=== PATIENT | female | born 1945 | race Caucasian/White ===

== ENCOUNTER → 2019-07-20 | Outpatient (CLI) | payer BC | END | disposition home or self-care (01) | LOC: CVU 07:37 | PROVIDERS: ATTEND Internal Medicine Cardiovascular Disease | DX: I10 Essential (primary) hypertension (principal); R09.89 Other specified symptoms and signs involving the circulatory and respiratory systems | CPT/HCPCS: 93880 ==

== ENCOUNTER 2020-03-08 07:44 | Day surgery (SDC) | payer BC ==
[2020-03-05 11:11] LABS: BASOPHILS # (AUTO) 0.04 x10^3/uL (0-0.1); BASOPHILS % (AUTO) 1 % (0-1); EOSINOPHILS # (AUTO) 0.12 x10^3/uL (0-0.4); EOSINOPHILS % (AUTO) 2 % (1-7); LYMPHOCYTES % (AUTO) 37 % (22-44); MD NO; MEAN CORPUSCULAR HEMOGLOBIN 29.7 pg (27.0-34.8); MEAN CORPUSCULAR HGB CONC 33.3 g/dL (32.4-35.8); MEAN CORPUSCULAR VOLUME 89.2 fL (80-100); MEAN PLATELET VOLUME 7.7 fL (7.4-10.4); MONOCYTES # (AUTO) 0.52 x10^3/uL (0.2-0.8); MONOCYTES % (AUTO) 9 % (2-9); NEUTROPHILS # (AUTO) 2.87 x10^3/uL (1.8-6.8); NEUTROPHILS % (AUTO) 51 % (42-75); PLATELET COUNT 286 x10^3/uL (130-400); RED BLOOD COUNT 4.57 x10^6/uL (3.82-5.3); RED CELL DISTRIBUTION WIDTH 12.9 % (9.6-15.2)
[2020-03-05 11:18] LABS: INTERNATIONAL NORMALIZED RATIO 0.97 (0.93-1.1)
[2020-03-05 11:22] LABS: ANION GAP 5 mmol/L (5-15); CALCIUM 9.1 mg/dL (8.5-10.1); CHLORIDE 106 mmol/L (98-107)
[2020-03-05 11:27] LABS: ALANINE AMINOTRANSFERASE 35 U/L (12-78); ALKALINE PHOSPHATASE 95 U/L (45-117); BILIRUBIN,TOTAL 0.5 mg/dL (0.2-1.0); CREATININE 0.99 mg/dL (0.55-1.02); TOTAL PROTEIN 7.5 g/dL (6.4-8.2)
[~2020-03-08] VITALS: Ht 165.1 cm; Wt 72.9 kg
[~2020-03-08 07:44] MED LIST: ASPI81TA45 PO; DIGE1TAB PO; ESOM20CA PO; LEVO75TA PO; METO-93 PO; ROSU10TA2 PO; VALS1TAB22 PO
[2020-03-08] MEDS ORDERED: CHLORHEXIDINE 15 ML UDC MM STA (08:19)
[2020-03-08] MEDS ORDERED: LACTATED RINGERS 1,000 ML IV ONE (08:19)
[2020-03-08] MEDS ORDERED: FENTANYL PF 250 MCG/5ML ONE (09:26)
[2020-03-08] MEDS ORDERED: ONDANSETRON 2MG/ML, 2ML ONE (09:30)
[2020-03-08] MEDS ORDERED: CEFAZOLIN 1,000 MG ONE (09:30)
[2020-03-08] MEDS ORDERED: PROPOFOL 10 MG/ML, 20ML ONE (09:30)
[2020-03-08] MEDS ORDERED: GLYCOPYRROLATE 0.2MG/1ML, 5ML ONE (09:30)
[2020-03-08] MEDS ORDERED: DEXAMETHASONE 4 MG/ML, 1ML ONE (09:30)
[2020-03-08] MEDS ORDERED: NEOSTIGMINE 1 MG/ML, 10ML ONE (09:30)
[2020-03-08] MEDS ORDERED: ROCURONIUM 10MG/ML,5ML ONE (09:30)
[2020-03-08] MEDS ORDERED: ISOSULFAN BLUE 10 MG/ML, 5ML IV ONE (09:56)
[2020-03-08] MEDS ORDERED: BUPIVACAINE/PF 0.5% ONE (09:56)
[2020-03-08] MEDS ORDERED: EPINEPHRINE 1 MG/ML, 1ML ONE (09:56)
[2020-03-08] MEDS ORDERED: ACETAMINOPHEN 325 MG TABLET PO PRN (11:00)
[2020-03-08] MEDS ORDERED: OXYcodone 5 MG/5 ML ORAL.SOL UDC PO PRN (11:00)
[2020-03-08] MEDS ORDERED: hydrALAzine 20 MG/ML, 1ML IV PRN (11:00)
[2020-03-08] MEDS ORDERED: HYDROmorphone 1 MG/ML, 1ML INJ IVPush PRN (11:00)
[2020-03-08] MEDS ORDERED: HALOPERIDOL 5 MG/ML IV PRN (11:00)
[2020-03-08] MEDS ORDERED: MEPERIDINE/PF 25MG/0.5ML IVPush PRN (11:00)
[2020-03-08] MEDS ORDERED: LABETALOL 5MG/ML, 20ML IV PRN (11:00)
[2020-03-08] MEDS ORDERED: morphine SULFATE 10 MG/ML, 1ML IVPush PRN (11:00)
[2020-03-08] MEDS ORDERED: FENTANYL PF 100 MCG/2ML IV PRN (11:00)
[2020-03-08] MEDS ORDERED: PROMETHAZINE 25 MG/ML, 1ML IVPush PRN (11:00)
[2020-03-08] MEDS ORDERED: BUPIVACAINE/PF-EPI 0.5% 1:200K INFIL ONE (11:26)
[2020-03-08] MEDS ORDERED: PROMETHAZINE 25 MG/ML, 1ML ONE (13:20)
[2020-03-08] MEDS ORDERED: HYDROmorphone 1 MG/ML, 1ML INJ ONE (13:20)
== END 2020-03-08 17:40 | disposition home or self-care (01) ==
LOC: OUT 07:44
PROVIDERS: ATTEND Surgery
DX: C50.512 Malignant neoplasm of lower-outer quadrant of left female breast (principal); Z17.0 Estrogen receptor positive status [ER+]; C96.9 Malignant neoplasm of lymphoid, hematopoietic and related tissue, unspecified; Z20.828 Contact with and (suspected) exposure to other viral communicable diseases; E11.9 Type 2 diabetes mellitus without complications; I10 Essential (primary) hypertension; K21.9 Gastro-esophageal reflux disease without esophagitis; E78.5 Hyperlipidemia, unspecified; E03.9 Hypothyroidism, unspecified; Z72.0 Tobacco use; Z90.49 Acquired absence of other specified parts of digestive tract; Z98.890 Other specified postprocedural states; Z90.710 Acquired absence of both cervix and uterus; Z79.899 Other long term (current) drug therapy; Z79.82 Long term (current) use of aspirin; Z72.89 Other problems related to lifestyle; Z82.49 Family history of ischemic heart disease and other diseases of the circulatory system; Z83.3 Family history of diabetes mellitus
CPT/HCPCS: 19301; 36415; 38525; 80053; 85025; 85610; 87635; 88305; 88307; 93005; C1729; J0171; J0690; J1100; J1170; J2405; J2550; J2704; J2710; J3010; J7120

== ENCOUNTER 2020-03-27 08:00 | Outpatient (CLI) | payer SELFPAY ==
[~2020-03-27] VITALS: Ht 165.1 cm; Wt 72.7 kg
[2020-03-27] MEDS ORDERED: ROSU5TAB PO (10:59)
[2020-03-27 12:19] LABS: ALANINE AMINOTRANSFERASE 24 U/L (12-78); ALBUMIN 3.6 g/dL (3.4-5.0); CALCIUM 8.8 mg/dL (8.5-10.1); CREATININE 0.94 mg/dL (0.55-1.02)
[2020-03-27 12:22] LABS: ALKALINE PHOSPHATASE 99 U/L (45-117); BILIRUBIN,TOTAL 0.8 mg/dL (0.2-1.0); TOTAL PROTEIN 6.9 g/dL (6.4-8.2)
[2020-03-27 12:41] LABS: ANION GAP 7 mmol/L (5-15); CHLORIDE 105 mmol/L (98-107)
== END 2020-03-27 23:59 | disposition home or self-care (01) ==
LOC: STAR 08:00 → EDSTATUS 03-30 08:30
PROVIDERS: ATTEND Surgery
DX: Z01.818 Encounter for other preprocedural examination (principal); C50.519 Malignant neoplasm of lower-outer quadrant of unspecified female breast; Z79.82 Long term (current) use of aspirin; Z79.899 Other long term (current) drug therapy; Z20.828 Contact with and (suspected) exposure to other viral communicable diseases; Z72.89 Other problems related to lifestyle; Z87.891 Personal history of nicotine dependence; Z82.49 Family history of ischemic heart disease and other diseases of the circulatory system; Z83.3 Family history of diabetes mellitus
CPT/HCPCS: 36415; 80053; 87635; 93005

== ENCOUNTER 2020-08-03 10:00 | Outpatient (CLI) | payer MEDICARE ==
[~2020-08-03 10:00] MED LIST changes: +ROSU5TAB PO
== END 2020-08-03 23:59 | disposition home or self-care (01) ==
LOC: ROC 10:00
PROVIDERS: ATTEND Radiology Radiation Oncology
DX: C50.512 Malignant neoplasm of lower-outer quadrant of left female breast (principal)
CPT/HCPCS: G0463

== ENCOUNTER → 2020-10-03 | Outpatient (CLI) | payer MEDICARE | END | disposition home or self-care (01) | LOC: ROC 07:41 | PROVIDERS: ATTEND Radiology Radiation Oncology | DX: Z08 Encounter for follow-up examination after completed treatment for malignant neoplasm (principal); Z85.3 Personal history of malignant neoplasm of breast; Z17.0 Estrogen receptor positive status [ER+]; Z79.899 Other long term (current) drug therapy | CPT/HCPCS: G0463 ==

== ENCOUNTER → 2021-01-09 | Outpatient (CLI) | payer MEDICARE | END | disposition home or self-care (01) | LOC: ROC 10:10 | PROVIDERS: ATTEND Radiology Radiation Oncology | DX: C50.512 Malignant neoplasm of lower-outer quadrant of left female breast (principal); M43.16 Spondylolisthesis, lumbar region; Z17.0 Estrogen receptor positive status [ER+] | CPT/HCPCS: G0463 ==

== ENCOUNTER → 2021-02-08 | Outpatient (CLI) | payer MEDICARE ==
[~2021-02-08] MED LIST changes: +ANAS1TAB49 PO
[2021-02-08 12:41] LABS: BASOPHILS % (AUTO) 1 % (0-1); EOSINOPHILS % (AUTO) 2 % (1-7); LYMPHOCYTES % (AUTO) 33 % (22-44); MEAN CORPUSCULAR HEMOGLOBIN 30.3 pg (27.0-34.8); MEAN CORPUSCULAR HGB CONC 34.7 g/dL (32.4-35.8); MEAN PLATELET VOLUME 6.9 fL (7.4-10.4); MONOCYTES % (AUTO) 13 % (2-9); NEUTROPHILS % (AUTO) 51 % (42-75); PLATELET COUNT 251 x10^3/uL (130-400); RED BLOOD COUNT 4.59 x10^6/uL (3.82-5.3); RED CELL DISTRIBUTION WIDTH 13.1 % (9.6-15.2)
[2021-02-08 12:42] LABS: MICROSCOPIC AUTO
[2021-02-08 12:50] LABS: INTERNATIONAL NORMALIZED RATIO 0.99 (0.93-1.1); PROTHROMBIN TIME 10.6 Seconds (9.6-11.5)
[2021-02-08 12:51] LABS: ALANINE AMINOTRANSFERASE 30 U/L (12-78); ANION GAP 8 mmol/L (5-15); CALCIUM 9.3 mg/dL (8.5-10.1); CHLORIDE 103 mmol/L (98-107); CREATININE 0.97 mg/dL (0.55-1.02)
[2021-02-08 12:54] LABS: ALKALINE PHOSPHATASE 117 U/L (45-117); BILIRUBIN,TOTAL 0.5 mg/dL (0.2-1.0); TOTAL PROTEIN 7.6 g/dL (6.4-8.2)
== END | disposition home or self-care (01) ==
LOC: STAR 11:22
PROVIDERS: ATTEND Neurological Surgery
DX: Z01.818 Encounter for other preprocedural examination (principal); M43.16 Spondylolisthesis, lumbar region
CPT/HCPCS: 36415; 71046; 80053; 81001; 85025; 85610; 85730; 87086; 93005

== ENCOUNTER → 2021-02-08 | Outpatient (CLI) | payer MEDICARE | END | disposition home or self-care (01) | LOC: CFH 14:12 | PROVIDERS: ATTEND Neurological Surgery | DX: M47.817 Spondylosis without myelopathy or radiculopathy, lumbosacral region (principal); M51.36 Other intervertebral disc degeneration, lumbar region; M43.16 Spondylolisthesis, lumbar region; M48.061 Spinal stenosis, lumbar region without neurogenic claudication | CPT/HCPCS: 72131 ==

== ENCOUNTER 2021-02-20 06:32 | Inpatient (IN) | payer MEDICARE ==
[~2021-02-20] VITALS: Ht 162.6 cm; Wt 76.5 kg
[2021-02-20] MEDS ORDERED: CHLORHEXIDINE 15 ML UDC ONE (07:15)
[2021-02-20] MEDS ORDERED: CHLORHEXIDINE 15 ML UDC PO ONE (07:30)
[2021-02-20] MEDS ORDERED: LACTATED RINGERS 1,000 ML IV SCH (07:30)
[2021-02-20] MEDS ORDERED: FENTANYL PF 250 MCG/5ML ONE (08:09)
[2021-02-20] MEDS ORDERED: PROPOFOL 100 ML ONE ×2 (08:10→11:54)
[2021-02-20] MEDS ORDERED: VANCOMYCIN 1,000 MG ONE (09:06)
[2021-02-20] MEDS ORDERED: BUPIVACAINE/PF 0.5% ONE (09:06)
[2021-02-20] MEDS ORDERED: BUPIVACAINE/PF 0.25% ONE (09:06)
[2021-02-20] MEDS ORDERED: GENTAMICIN 80 MG/2 ML ONE (09:06)
[2021-02-20] MEDS ORDERED: EPHEDRINE 50 MG/ML, 1ML ONE (09:46)
[2021-02-20] MEDS ORDERED: NEOSTIGMINE 1 MG/ML, 10ML ONE (10:14)
[2021-02-20] MEDS ORDERED: PROPOFOL 10 MG/ML, 20ML ONE (10:14)
[2021-02-20] MEDS ORDERED: ROCURONIUM 10MG/ML,5ML ONE (10:14)
[2021-02-20] MEDS ORDERED: DEXAMETHASONE 4 MG/ML, 1ML ONE (10:14)
[2021-02-20] MEDS ORDERED: SUCCINYLCHOLINE 20 MG/ML, 10ML ONE (10:14)
[2021-02-20] MEDS ORDERED: ONDANSETRON 2MG/ML, 2ML ONE (10:14)
[2021-02-20] MEDS ORDERED: GLYCOPYRROLATE 0.2MG/1ML, 5ML ONE (10:14)
[2021-02-20] MEDS ORDERED: CEFAZOLIN 1,000 MG ONE (10:14)
[2021-02-20] MEDS ORDERED: hydrALAzine 20 MG/ML, 1ML IV PRN (11:00)
[2021-02-20] MEDS ORDERED: HYDROmorphone 1 MG/ML, 1ML INJ IVPush PRN (11:00)
[2021-02-20] MEDS ORDERED: LABETALOL 5MG/ML, 20ML IV PRN (11:00)
[2021-02-20] MEDS ORDERED: LORazepam 2 MG/ML, 1ML IVPush PRN (11:00)
[2021-02-20] MEDS ORDERED: ACETAMINOPHEN 325 MG TABLET PO PRN (11:00)
[2021-02-20] MEDS ORDERED: PROMETHAZINE 25 MG SUPP PR PRN (11:00)
[2021-02-20] MEDS ORDERED: METHOCARBAMOL 1,000 MG in DEXTROSE 5% 100 ML IV PRN (11:00)
[2021-02-20] MEDS ORDERED: ONDANSETRON 2MG/ML, 2ML IVPush PRN (11:00)
[2021-02-20] MEDS ORDERED: METOPROLOL 1 MG/ML, 5ML IV PRN (11:00)
[2021-02-20] MEDS ORDERED: OXYcodone 5 MG/5 ML ORAL.SOL UDC PO PRN (11:00)
[2021-02-20] MEDS ORDERED: PROMETHAZINE 25 MG/ML, 1ML IVPush PRN (11:00)
[2021-02-20] MEDS ORDERED: BUPIVACAINE 0.25% ONE (11:14)
[2021-02-20] MEDS ORDERED: EPINEPHRINE 1 MG/ML, 1ML ONE (11:14)
[2021-02-20] MEDS ORDERED: FENTANYL PF 100 MCG/2ML ONE ×2 (13:36→14:21)
[2021-02-20] MEDS: FENTANYL PF 100 MCG/2ML IV PRN ×3 (13:38→14:23)
[2021-02-20] MEDS ORDERED: OXYcodone 5 MG/5 ML ORAL.SOL UDC ONE (13:55)
[2021-02-20] MEDS ORDERED: ACETAMINOPHEN 650 MG/20.3 ML UDC ONE (13:55)
[2021-02-20] MEDS ORDERED: HYDROmorphone PCA 30 MG/30 ML IV PRN ×2 (14:30→17:00)
[2021-02-20] MEDS ORDERED: OXYcodone IR 5MG TABLET PO PRN (17:00)
[2021-02-20] MEDS ORDERED: morphine SULFATE 10 MG/ML, 1ML IV PRN (17:00)
[2021-02-20] MEDS ORDERED: PROMETHAZINE 25 MG/ML, 1ML IM PRN (17:00)
[2021-02-20] MEDS ORDERED: BISACODYL 10 MG SUPP PR PRN (17:00)
[2021-02-20] MEDS ORDERED: ONDANSETRON 2MG/ML, 2ML IV PRN (17:00)
[2021-02-20] MEDS ORDERED: MAGNESIUM HYDROXIDE 8%, 30ML UDC PO PRN (17:00)
[2021-02-20] MEDS ORDERED: DIPHENHYDRAMINE 50 MG/ML, 1ML IVPush PRN (17:30)
[2021-02-20] MEDS ORDERED: DIPHENHYDRAMINE 50 MG/ML, 1ML IM PRN (17:30)
[2021-02-20] MEDS: CEFAZOLIN PMX 1GM/50ML 50 ML IVPB SCH (19:37)
[2021-02-20] MEDS: ATORVASTATIN 40 MG TABLET PO SCH (19:57)
[2021-02-20 20:00] VITALS: BP 111/61
[2021-02-20] MEDS: NS + 20MEQ KCL 1,000 ML IV SCH (21:31)
[2021-02-20 23:34] VITALS: BP 105/67
[2021-02-21 02:53] VITALS: BP 96/61
[2021-02-21] MEDS: CEFAZOLIN PMX 1GM/50ML 50 ML IVPB SCH (03:40)
[2021-02-21] MEDS ORDERED: METOPROLOL SUCCINATE 50 MG TAB.ER.24H PO SCH (06:00)
[2021-02-21] MEDS: NS + 20MEQ KCL 1,000 ML IV SCH ×2 (06:08→17:25)
[2021-02-21] MEDS: PANTOPRAZOLE 40MG TABLET PO SCH (06:09)
[2021-02-21] MEDS: LEVOTHYROXINE 75 MCG TABLET PO SCH (06:09)
[2021-02-21 06:30] LABS: BASOPHILS % (AUTO) 0 % (0-1); EOSINOPHILS % (AUTO) 0 % (1-7); LYMPHOCYTES % (AUTO) 9 % (22-44); MEAN CORPUSCULAR HEMOGLOBIN 30.1 pg (27.0-34.8); MEAN CORPUSCULAR HGB CONC 34.5 g/dL (32.4-35.8); MEAN PLATELET VOLUME 8.4 fL (7.4-10.4); MONOCYTES % (AUTO) 12 % (2-9); NEUTROPHILS % (AUTO) 79 % (42-75); PLATELET COUNT 146 x10^3/uL (130-400); RED BLOOD COUNT 3.56 x10^6/uL (3.82-5.3); RED CELL DISTRIBUTION WIDTH 12.8 % (9.6-15.2)
[2021-02-21 06:41] LABS: ANION GAP 5 mmol/L (5-15); CHLORIDE 108 mmol/L (98-107); CREATININE 0.79 mg/dL (0.55-1.02)
[2021-02-21 07:58] VITALS: BP 119/70
[2021-02-21] MEDS: VALSARTAN 80 MG TABLET PO SCH (08:01)
[2021-02-21] MEDS: SENNA/DOCUSATE TABLET PO SCH (08:01)
[2021-02-21] MEDS: HYDROCHLOROTHIAZIDE 12.5 MG CAPSULE PO SCH (08:01)
[2021-02-21] MEDS ORDERED: HYDROmorphone 2MG TABLET PO PRN (08:30)
[2021-02-21] MEDS ORDERED: ANASTROZOLE 1 MG TABLET PO SCH (09:00)
[2021-02-21 12:44] VITALS: BP 107/64
[2021-02-21 19:59] VITALS: BP 117/70
[2021-02-21] MEDS: ATORVASTATIN 40 MG TABLET PO SCH (21:00)
[2021-02-21] MEDS: METOPROLOL SUCCINATE 50 MG TAB.ER.24H PO SCH (21:11)
[2021-02-21] MEDS: TIZANIDINE 2MG TABLET PO PRN (21:23)
[2021-02-22] MEDS: NS + 20MEQ KCL 1,000 ML IV SCH ×3 (00:49→20:10)
[2021-02-22 01:33] VITALS: BP 108/64
[2021-02-22 05:51] LABS: BASOPHILS % (AUTO) 0 % (0-1); EOSINOPHILS % (AUTO) 0 % (1-7); LYMPHOCYTES % (AUTO) 12 % (22-44); MEAN CORPUSCULAR HEMOGLOBIN 30.9 pg (27.0-34.8); MEAN CORPUSCULAR HGB CONC 34.9 g/dL (32.4-35.8); MEAN PLATELET VOLUME 7.3 fL (7.4-10.4); MONOCYTES % (AUTO) 11 % (2-9); NEUTROPHILS % (AUTO) 77 % (42-75); PLATELET COUNT 173 x10^3/uL (130-400); RED BLOOD COUNT 3.19 x10^6/uL (3.82-5.3)
[2021-02-22 06:01] LABS: ANION GAP 5 mmol/L (5-15); CALCIUM 8.4 mg/dL (8.5-10.1); CHLORIDE 107 mmol/L (98-107)
[2021-02-22] MEDS: LEVOTHYROXINE 75 MCG TABLET PO SCH (06:01)
[2021-02-22] MEDS: PANTOPRAZOLE 40MG TABLET PO SCH (06:01)
[2021-02-22 06:03] LABS: CREATININE 0.71 mg/dL (0.55-1.02)
[2021-02-22] MEDS: OXYcodone IR 5MG TABLET PO PRN ×4 (07:42→23:02)
[2021-02-22] MEDS: HYDROCHLOROTHIAZIDE 12.5 MG CAPSULE PO SCH (07:43)
[2021-02-22] MEDS: VALSARTAN 80 MG TABLET PO SCH (07:43)
[2021-02-22] MEDS: SENNA/DOCUSATE TABLET PO SCH (07:44)
[2021-02-22 08:40] VITALS: BP 115/64
[2021-02-22] MEDS: TIZANIDINE 2MG TABLET PO PRN (09:53)
[2021-02-22] MEDS: DEXAMETHASONE 4 MG TABLET PO SCH ×2 (14:44→18:27)
[2021-02-22 16:05] VITALS: BP 100/63
[2021-02-22] MEDS: ATORVASTATIN 40 MG TABLET PO SCH (20:08)
[2021-02-22] MEDS: METOPROLOL SUCCINATE 50 MG TAB.ER.24H PO SCH (20:12)
[2021-02-22 20:35] VITALS: BP 113/69
[2021-02-23 02:03] VITALS: BP 113/67
[2021-02-23] MEDS: OXYcodone IR 5MG TABLET PO PRN ×2 (04:28→09:17)
[2021-02-23] MEDS: PANTOPRAZOLE 40MG TABLET PO SCH (05:32)
[2021-02-23] MEDS: LEVOTHYROXINE 75 MCG TABLET PO SCH (05:32)
[2021-02-23] MEDS: NS + 20MEQ KCL 1,000 ML IV SCH (07:30)
[2021-02-23] MEDS ORDERED: METH4TAB2 PO (09:02)
[2021-02-23] MEDS ORDERED: TIZA-106 PO (09:02)
[2021-02-23] MEDS ORDERED: OXYC-302 PO (09:02)
[2021-02-23] MEDS ORDERED: SENN-211 PO (09:02)
[2021-02-23] MEDS ORDERED: MAGN400O7 PO (09:02)
[2021-02-23] MEDS: SENNA/DOCUSATE TABLET PO SCH (09:17)
[2021-02-23] MEDS: DEXAMETHASONE 4 MG TABLET PO SCH ×2 (09:17→12:34)
[2021-02-23] MEDS: HYDROCHLOROTHIAZIDE 12.5 MG CAPSULE PO SCH (09:17)
[2021-02-23] MEDS: VALSARTAN 80 MG TABLET PO SCH (09:17)
== END 2021-02-23 13:10 | DRG 455 ==
LOC: OUT 06:32 → 4NE 16:11 → OUT 16:12 → 4NE 16:12
PROVIDERS: ADMIT Neurological Surgery; ATTEND Neurological Surgery
PROC: 0SG00AJ Fusion of Lumbar Vertebral Joint with Interbody Fusion Device, Posterior Approach, Anterior Column, Open Approach (ICD-10-PCS; 2021-02-20)
PROC: 0SG0071 Fusion of Lumbar Vertebral Joint with Autologous Tissue Substitute, Posterior Approach, Posterior Column, Open Approach (ICD-10-PCS; 2021-02-20)
PROC: 8E0W0CZ Robotic Assisted Procedure of Trunk Region, Open Approach (ICD-10-PCS; 2021-02-20)
PROC: 4A11X4G Monitoring of Peripheral Nervous Electrical Activity, Intraoperative, External Approach (ICD-10-PCS; 2021-02-20)
PROC: 01NB4ZZ Release Lumbar Nerve, Percutaneous Endoscopic Approach (ICD-10-PCS; principal; 2021-02-20 09:30)
DX: M48.062 Spinal stenosis, lumbar region with neurogenic claudication (principal); M43.16 Spondylolisthesis, lumbar region; M54.16 Radiculopathy, lumbar region; Z87.891 Personal history of nicotine dependence
CPT/HCPCS: 36415; 72100; 80048; 85025; 95938; 95941; C1713; C1776; G0378; J0171; J0690; J1100; J2405; J2704; J2710; J3010; J3370; J3480; C1762; J0330; J1580; J2800; J7120